=== PATIENT | female | born 1955 | race Caucasian/White ===

== ENCOUNTER 2018-01-13 06:36 | Inpatient (IN) | payer OTHER ==
[~2018-01-13] VITALS: Ht 157.5 cm; Wt 97.1 kg
[2018-01-13] MEDS ORDERED: ASPIRIN 81 MG TAB.CHEW ONE (06:46)
--- NOTE | 2018-01-13 06:56 | PHYS DOC ---
Adult General Chief Complaint Chief Complaint: CHEST PAIN HPI HPI 62-year-old female presents with sudden onset chest pain. The chest pain started about 30 minutes ago at home. The patient was baking breakfast when she had a central chest pain that she describes as sharp and intense. At its worst was 8 out of 10. It radiated straight through to the middle of her back. She has not had pain like this before, so she became concerned. On arrival to the ED , she states that her pain has decreased to a 3 out of 10. She denies nausea, vomiting, diaphoresis, shortness of breath. Patient did return from [facility] yesterday. Patient denies a significant history of GERD. She had a stress test about a year ago that was reported to be negative. She has not had a cardiac catheter. She's had no other cardiac interventions. She denies fever or chills. She was feeling fine prior to this episode. Review of Systems Review of Systems Constitutional: Denies fever or chills [] Eyes: Denies change in visual acuity, redness, or eye pain [] HENT: Denies nasal congestion or sore throat [] Respiratory: Denies cough or shortness of breath [] Cardiovascular: No additional information not addressed in HPI [] GI: Denies abdominal pain, nausea, vomiting, bloody stools or diarrhea [] : Denies dysuria or hematuria [] Musculoskeletal: Thoracic back pain. Denies joint pain [] Integument: Denies rash or skin lesions [] Neurologic: Denies headache, focal weakness or sensory changes [] Endocrine: Denies polyuria or polydipsia [] All other systems were reviewed and found to be within normal limits, except as documented in this note. Current Medications Current Medications Current Medications Medications (Trade) Dose Ordered Sig/[facility] Start Time Stop Time Status Last Admin Dose Admin Aspirin (Children'S Aspirin) 81 mg STK-MED ONCE 01/13/18 06:46 01/13/18 06:48 DC Sodium Chloride 1,000 ml @ 1,000 mls/hr 1X ONCE 01/13/18 07:00 01/13/18 07:59 01/13/18 06:49 1,000 MLS/HR Allergies Allergies Allergies Coded Allergies Type Severity Reaction Last Updated Verified No Known Drug Allergies 01/13/18 No Physical Exam Physical Exam Constitutional: Well developed, well nourished, no acute distress, non-toxic appearance. [] HENT: Normocephalic, atraumatic, bilateral external ears normal, oropharynx moist, no oral exudates, nose normal. [] Eyes: PERRLA, EOMI, conjunctiva normal, no discharge. [] Neck: Normal range of motion, no tenderness, supple, no stridor. [] Cardiovascular:Heart rate regular rhythm, no murmur [] Lungs & Thorax: Bilateral breath sounds clear to auscultation [] Abdomen: Bowel sounds normal, soft, no tenderness, no masses, no pulsatile masses. [] Skin: Warm, dry, no erythema, no rash. [] Back: No tenderness, no CVA tenderness. [] Extremities: No tenderness, no cyanosis, no clubbing, ROM intact. 2+ non- pitting edema bilateral lower legs [] Neurologic: Alert and oriented X 3, normal motor function, normal sensory function, no focal deficits noted. [] Psychologic: Affect normal, judgement normal, mood normal. [] EKG EKG Sinus rhythm, rate 63, normal axis, no ST elevations or depressions.[] Radiology/Procedures Radiology/Procedures [] Impressions: Preliminary interpretation: No pleural effusions, no pneumothorax, no focal consolidations. Course & Med Decision Making Course & Med Decision Making Pertinent Labs and Imaging studies reviewed. (See chart for details) Within the first 10 minutes of arrival, the patient had an EKG and labs started. She did not take aspirin home, so 324mg of chewable aspirin was given to the patient. Initial EKG did not show any ST elevation. Her chest x-ray is unremarkable. Her labs are unremarkable. Her troponin is negative. I discussed the case with the hospitalist, Dr. Townsend and he has agreed to admission for chest pain rule out. I discussed this with the patient and her and they are in agreement with the plan. [] Dragon Disclaimer Dragon Disclaimer This electronic medical record was generated, in whole or in part, using a voice recognition dictation system. GWEN KOEHLER DO Jan 13, 2018 06:56
[2018-01-13] MEDS ORDERED: ASPIRIN 81 MG TAB.CHEW PO ONE (07:00)
[2018-01-13] MEDS ORDERED: IV NORMAL SALINE 1,000ML 1,000 ML IV ONE (07:00)
[2018-01-13 07:01] LABS: BASO % 1 % (0-3); EOS # 0.2 x10^3/uL (0.0-0.7); EOS % 3 % (0-3); HEMATOCRIT 43.5 % (36.0-47.0); HEMOGLOBIN 14.6 g/dL (12.0-15.5); LYMPH # 1.8 x10^3/uL (1.0-4.8); LYMPH % 36 % (24-48); MEAN CORPUSCULAR HEMOGLOBIN 29 pg (25-35); MEAN CORPUSCULAR HGB CONC 34 g/dL (31-37); MEAN CORPUSCULAR VOLUME 86 fL (79-100); MONO # 0.6 x10^3/uL (0.0-1.1); MONO % 12 % (0-9); NEUT # 2.4 x10^3uL (1.8-7.7); NEUT % 48 % (31-73); PLATELET COUNT 236 x10^3/uL (140-400); RED BLOOD COUNT 5.07 x10^6/uL (3.50-5.40); RED CELL DISTRIBUTION WIDTH 13.8 % (11.5-14.5); WHITE BLOOD COUNT 4.9 x10^3/uL (4.0-11.0)
[2018-01-13 07:16] LABS: ALBUMIN 3.8 g/dL (3.4-5.0); ALBUMIN/GLOBULIN RATIO 1.1 (1.0-1.7); CALCIUM 9.1 mg/dL (8.5-10.1); CREATININE 0.8 mg/dL (0.6-1.0); GFR 73.2; POTASSIUM 3.7 mmol/L (3.5-5.1); TOTAL BILIRUBIN 0.6 mg/dL (0.2-1.0); TOTAL PROTEIN 7.2 g/dL (6.4-8.2)
[2018-01-13] MEDS ORDERED: NITROGLYCERIN SUBLINGUAL 0.4 MG BOTTLE OF 25. SL PRN (08:00)
[2018-01-13] MEDS ORDERED: ONDANSETRON PF 4 MG/2 ML VIAL. IV PRN (08:00)
[2018-01-13] MEDS ORDERED: MORPHINE SULFATE 2 MG/ML DISP.SYRIN. IV PRN (08:00)
--- NOTE | 2018-01-13 08:03 | RAD ---
EXAM: CHEST 1 VIEW History: Chest pain COMPARISON: 06/10/2005 TECHNIQUE: Single portable radiograph of the chest FINDINGS: The cardiac silhouette is unremarkable. The lungs are clear bilaterally. The costophrenic sulci are clear and well demarcated. IMPRESSION: No radiographic evidence of an acute cardiopulmonary process. Electronically signed by: Adebayo Barnes MD (01/13/2018 7:59 AM) [facility]
[2018-01-13 09:39] VITALS: BP 172/89
[2018-01-13] MEDS ORDERED: LIPITOR (10:22)
[2018-01-13] MEDS ORDERED: LEVOTHYROXINE (10:22)
[2018-01-13 11:03] VITALS: BP 133/83
[2018-01-13] MEDS ORDERED: IOHEXOL 300 MG/ML 75 ML VIAL. IV ONE (13:00)
--- NOTE | 2018-01-13 13:21 | EKG ---
[address] [address] Test Date: 2018-01-13 Test Time: 06:41:27 Pat Name: MEENAKSHI JEFFERSON Department: Room: 117 A Gender: F Guest Service Aide: : 1955 Requested By: GWEN KOEHLER Order Number: [id number] Reading MD: Vince Álvarez MD Measurements Intervals [place] Rate: 63 P: 63 MN: 126 QRS: 26 QRSD: 78 T: 14 QT: 412 QTc: 425 Interpretive Statements SINUS RHYTHM Electronically Signed On 01-15-2018 13:49:57 CDT by Vince Álvarez MD
--- NOTE | 2018-01-13 14:30 | HP ---
ADMIT DATE: 01/13/2018 HISTORY OF PRESENT ILLNESS: The patient is a 62-year-old female patient, who came to the Emergency Room complaining of sudden onset chest pain started about 30 minutes prior to arrival to the Emergency Room. While picking breakfast, she developed sudden severe central chest pain that she describes as sharp, intense. It was 8/10 in severity, radiating through and through to the back. She has not had pain like this before. She denied any nausea or vomiting. Denied any diaphoresis or shortness of breath. By the time she arrived to the Emergency Room, it was only 3/10. She was given 4 tablets of baby aspirin tablets and the patient did just return from [place]. Their flight loses about 10-1/2 hours, landing in [facility] and from there to [place]. She had had a stress test done about a year ago that was reportedly negative. She has not had any cardiac catheterization and no other cardiac intervention. PAST MEDICAL HISTORY: Significant for hypothyroidism, hyperlipidemia, borderline type 2 diabetes, generalized osteoarthritis. She has bilateral cataract, does not require surgical intervention yet. PAST SURGICAL HISTORY: Significant for left breast biopsy and ovarian tumor treatment with embolization. She has also had a colonoscopy. ALLERGIES: She has no known drug allergies. MEDICATIONS: She is apparently on Synthroid, Lipitor, multivitamin, calcium with vitamin D and fish oil. FAMILY HISTORY: She has 2 brothers and 1 sister. Her older brother in a motor vehicle accident. Her younger brother and sister are healthy. Her sister is the survival of a cervical cancer. Her father is still alive and has prostate cancer. Mother is alive at age of 82 and she is apparently bedridden. She has multiple CVAs and diabetes. SOCIAL HISTORY: She is , has 2 daughters. She does not smoke or drink alcohol. She is taking care of her mother. REVIEW OF SYSTEMS: The patient denied any blurring of vision. She has bilateral cataract, does not require any surgical intervention, but denied any glaucoma or macular degeneration. Denied any earache, tinnitus or sensorineural deafness. Denied any nosebleeds, stuffy nose, or postnasal drip. Denied any sore throat, sore tongue, toothache, hoarseness of voice or difficulty swallowing. Denied any nausea, vomiting, diarrhea, or constipation. Denied any hematemesis, melena or hematochezia. Denied any dysuria, frequency or hematuria. Did complain of chest pain, but denied any shortness of breath, orthopnea, paroxysmal nocturnal dyspnea. Denied any cough, phlegm or hemoptysis. Denied any chills, rigors, or fever. Denied any dizziness, lightheadedness, or vertigo. PHYSICAL EXAMINATION: GENERAL: On arrival to the Emergency Room, she looked well and was clearly in no apparent respiratory distress. No pallor, jaundice, cyanosis, or thyromegaly. No jugular venous distension. No limb edema. VITAL SIGNS: Her heart rate was 57, blood pressure was 172/89, temperature was 98, respiratory rate was 18 and oxygen saturation was 98%. HEAD, EYES, EARS, NOSE AND THROAT: Showed normocephalic, atraumatic. NECK: Supple. HEART: Showed normal first and second sounds. No gallop, rub or murmur. CHEST: Clear to auscultation. No crepitation or rhonchi. ABDOMEN: Distended, soft, nontender. NEUROLOGIC: She is awake, alert, responding appropriately. All cranial nerves intact. EXTREMITIES: She moves extremities without difficulty. She ambulates without assistance or assistive devices. LABORATORY DATA: On arrival to the Emergency Room showed a serum sodium 140, potassium 3.7, chloride 104, bicarbonate 29, anion gap of 7, BUN 18, creatinine 0.8, estimated GFR was 73 mL per minute. Her glucose was 95, calcium was 9.1. Total bilirubin, AST, ALT, alkaline phosphatase were normal. Total protein was 7.2, albumin was 3.9. Her first set of cardiac enzymes showed troponin to be less than 0.017. Her white cell count was 4900, hemoglobin 15, hematocrit 44, MCV 86 and platelet count of 236,000. Her chest x-ray showed the cardiac silhouette is unremarkable. The lungs are clear bilaterally. The costophrenic sulci are clear and well demarcated. Her EKG showed that she was in sinus rhythm with a heart rate of 63 beats per minute with no ST segment elevation or depression. ASSESSMENT AND PLAN: The patient was admitted to rule out myocardial infarction. We will do 2 more sets of cardiac enzyme. Consult the bitumen plant operator, given the intensity of pain and thus radiating through to the back, I met with concerned that about aortic dissection and therefore, I will do CT scan with CT angio of the chest that should rule out aortic dissection and pulmonary embolism. She also has had a long flight from [place] through [facility] the last about 10-1/2 hours. SHELLI GUZMAN MD DR: FABIOLA/cyndy JOB#: [id number] / [id number]
[2018-01-13 14:38] VITALS: BP 167/88
[2018-01-13] MEDS ORDERED: LEVO150T PO (14:46)
[2018-01-13] MEDS ORDERED: ATOR20TA PO (14:46)
--- NOTE | 2018-01-13 14:54 | RAD ---
Examination: CT angiography chest HISTORY: History of chest pain, shortness of breath COMPARISON: None available technique: Axial CT angiographic images of chest were performed with IV contrast. Coronal and sagittal 3-D MIP reformats are performed Exposure: One or more of the following individualized dose reduction techniques were utilized for this examination: 1. Automated exposure control 2. Adjustment of the mA and/or kV according to patient size 3. Use of iterative reconstruction technique. Findings: The central airways are patent. Mild cardiomegaly. Coronary artery calcifications identified. There is no evidence of filling defect identified in the main pulmonary artery trunk and right and left main pulmonary arteries and the visualized lobar, segmental branches of the pulmonary arteries. The lungs are clear. Moderate size hiatal hernia is identified. The visualized liver, spleen, adrenals grossly appears unremarkable. Moderate degenerative changes thoracic spine. IMPRESSION: 1. No evidence of pulmonary embolism. 2. The lungs are clear. 3. Moderate hiatal hernia. 4. Coronary artery calcifications Electronically signed by: Adebayo Barnes MD (01/13/2018 2:50 PM) [facility]
--- NOTE | 2018-01-13 16:08 | CONS ---
DATE OF CONSULTATION: 01/13/2018 REASON FOR CONSULTATION: Chest pain. HISTORY OF PRESENT ILLNESS: A 62-year-old female presented to the ER with a sharp stabbing pain lasting for about 45 minutes prior to arrival to the ER. She had evaluation in the ER including a CT of the chest, which did not reveal any significant pathology. Due to her risk factors for recent travel and cardiac comorbidities, she was asked to be evaluated by Cardiology. In speaking with the patient, she is at baseline fairly active, but does not perform structured exercise. She recently returned from a trip from [place] where she was able to ambulate most of the trip without any problems. At home, she takes care of her bedridden mother and although she gets dyspneic with significant prolonged activities at baseline, with usual activity she does not have any symptoms such as chest pain, orthopnea, PND or lower extremity edema. PAST MEDICAL HISTORY: Notable for as follows: 1. Hypothyroidism. 2. Dyslipidemia. 3. Borderline diabetes. 4. Generalized osteoarthritis. 5. Bilateral cataract surgery. ALLERGIES: No known drug allergies. CURRENT CARDIOVASCULAR MEDICATIONS: Lipitor. FAMILY HISTORY: She has no significant cardiac family history, but does have family members with multiple CVAs and diabetes. SOCIAL HISTORY: The patient denies any alcohol, tobacco or illicit drug use. She is and has two daughters. REVIEW OF SYSTEMS: Negative for 10 out of 14 systems reviewed, unless otherwise mentioned above in HPI. PHYSICAL EXAMINATION: VITAL SIGNS: Afebrile, 59, 18, 167/88, 97% on room air. GENERAL: She is alert and oriented, no acute distress. HEAD AND NECK: Unremarkable. HEART: Regular rate and rhythm without murmurs, rubs or gallops. LUNGS: Clear to auscultation bilaterally. ABDOMEN: Soft, nontender, nondistended. EXTREMITIES: Without any clubbing, cyanosis or edema. NEUROLOGIC: No focal deficits. MUSCULOSKELETAL: No trauma. DIAGNOSTIC STUDIES: Cardiac enzymes negative x 3. EKG is unremarkable. Hemoglobin, platelets are within normal limits. CT of the chest is unremarkable. IMPRESSION: Atypical chest pain. Differential diagnosis is broad, but no obvious cardiac pathology is noted. Suspect to be in the pleuritic nature versus hypertensive urgency, although no clear delineation to be made at this time. RECOMMENDATIONS: Given her low risk presentation of negative cardiac enzymes, normal EKG and atypical chest pain, she would be fairly reasonable to be discharged home. Of note, she had a stress test about 1 year ago, which is normal according to her through Dr. Laws at [facility]. The patient was advised to follow up with her shake splitter, Dr. Laws for any recurrent chest pain for consideration of coronary angiography given her coronary calcifications noted on CT of the aorta here in the hospital. Thank you for this consultation. Otherwise, continue risk factor modification. CHRIS GABRIEL MD DR: HEMA/cyndy JOB#: [id number] / [id number]
--- NOTE | 2018-01-13 20:34 | DS ---
DATE OF DISCHARGE: 01/13/2018 HISTORY OF PRESENT ILLNESS: The patient is a 62-year-old female patient, who was admitted with sudden severe stabbing chest pain that is retrosternal, radiating through and through to the back associated with a mild diaphoresis, but no nausea, no vomiting, no shortness of breath lasted about 20 minutes, rated about 8/10 in severity and subsided spontaneously. The patient has 3 sets of cardiac enzymes, all of them showed troponin to be less than 0.017. She traveled from [place] to back home here in [place] and the flight was lasted about 3-1/2 hours and as this is a risk for DVT, I did actually a CT angio of the chest, which basically showed the patient has mild cardiomegaly and coronary artery calcification, but the central airways are patent. There is no evidence of filling defects identified in the main pulmonary artery trunk and the right and left main pulmonary arteries and visualized lobar-segmental branches of pulmonary arteries. Her lungs are clear. Since her moderate sized hiatal hernia is identified, the visualized liver, spleen, and adrenals are grossly appears unremarkable. She has moderate degenerative change of the thoracic spine. She was seen in consultation by the rubber roller grinder operator and as she has a stress test done recently, the rubber roller grinder operator set that the patient can safely be discharged to follow up with her primary care physician. PHYSICAL EXAMINATION: GENERAL: When I saw her this afternoon, she looked well and was clearly in no apparent respiratory distress. No pallor, jaundice, cyanosis, or thyromegaly. No jugular venous distension. No limb edema. VITAL SIGNS: Her heart rate was 59, blood pressure was 167/88, temperature was 98, respiratory rate was 18 and oxygen saturation was 97%. HEAD, EYES, EARS, NOSE AND THROAT: Normocephalic and atraumatic. NECK: Supple. HEART: Showed normal first and second heart sounds with no gallop, rub or murmur. CHEST: Clear to auscultation. No crepitation or rhonchi. ABDOMEN: Distended, soft, nontender. NEUROLOGICAL: She is awake, alert, responding appropriately. Cranial nerves intact. She moves extremities without difficulty. She ambulates without assistance or assistive devices. She has 3 sets of cardiac enzymes, all of them showed troponin to be less than 0.017. Her CT angio of the chest showed no evidence of negative for pulmonary emboli. The lungs are clear with no evidence of pneumothorax, pneumonia or pleural effusion, moderate size hiatal hernia. The patient will be discharged home to continue on her current medications that include atorvastatin calcium 20 mg at bedtime, levothyroxine sodium 150 mcg once a day. FINAL DISCHARGE DIAGNOSES: Chest pain, myocardial infarction ruled out, hyperlipidemia, hypothyroidism, generalized osteoarthritis, and hiatal hernia. SHELLI GUZMAN MD DR: FABIOLA/cyndy JOB#: [id number] / [id number]
[2018-01-14] MEDS ORDERED: LEVOTHYROXINE 150 MCG TABLET PO SCH (06:00)
[2018-01-14] MEDS ORDERED: ATORVASTATIN CALCIUM 20 MG TABLET PO SCH (09:00)
== END 2018-01-13 16:55 | disposition home or self-care (01) | DRG 313 ==
LOC: ER 06:36 → 1 SOUTH 08:33
PROVIDERS: ADMIT Internal Medicine; ATTEND Internal Medicine
DX: R07.89 Other chest pain (principal); E03.9 Hypothyroidism, unspecified; I51.7 Cardiomegaly; E78.5 Hyperlipidemia, unspecified; K44.9 Diaphragmatic hernia without obstruction or gangrene; I25.10 Atherosclerotic heart disease of native coronary artery without angina pectoris; M15.9 Polyosteoarthritis, unspecified; Z74.01 Bed confinement status; Z80.49 Family history of malignant neoplasm of other genital organs; Z83.3 Family history of diabetes mellitus; Z79.899 Other long term (current) drug therapy
CPT/HCPCS: 36415; 71045; 71275; 80053; 83690; 83880; 84484; 85025; 93005; 96360; Q9967; 99285-25; J7030

== ENCOUNTER → 2020-12-07 | Outpatient (CLI) | payer OTHER ==
[~2020-12-07] MED LIST: ATOR20TA PO; LEVO150T PO; LEVOTHYROXINE; LIPITOR
--- NOTE | 2020-12-07 11:47 | RAD ---
EXAM: DUAL ENERGY X-RAY ABSORPTIOMETRY (DEXA). HISTORY: Postmenopausal screening. FINDINGS: The lowest measured T-score is -1.1 in the right femoral neck, based on a bone mineral dens ity of 0.813 g/cm^2. Refer to the worksheets for full detail. There has been a 10.5 percent decrease in density of the right hip and 10.4 percent decrease in densi ty of the lumbar spine compared to a baseline exam dated 06/05/2009. IMPRESSION: 1. Low bone mass. Bone mineral density yields a T-score between -1.0 and -2.5. Fracture risk is incre ased. 2. FRAX report: Not calculated. METHODOLOGY: Dual energy x-ray absorptiometry was performed to measure bone mineral density. The foll owing analysis is based on the 2019 Official Positions of the International Society for Clinical Dens itometry: Measurements of the hips and the average of L1-L4 are preferred. When the spine and/or hip cannot be feasibly measured or interpreted, or in the setting of hyperparathyroidism, distal radial bone minera l density may be measured. The lumbar spine T-score is based on the average bone mineral density of L1-L4. In the setting of art ifact or anatomic abnormality, some lumbar levels may be excluded, and the remaining levels used for calculation. A single lumbar level is not used for diagnosis, and if only a single level is available for assessment, another anatomic site will be used to assign a diagnosis. The hip T-score is based on the bone mineral density measurement of the femoral neck or total proxima l femur of either side, whichever is lowest. Bilateral mean values are not used for diagnosis. The forearm T-score is derived from 33% of the distal radius of the nondominant forearm. Electronically signed by: Ary Estevez MD (12/07/2020 11:45 AM) [id number]
== END ==
LOC: DXRAD 09:28
PROVIDERS: ATTEND Family Medicine
DX: M85.80 Other specified disorders of bone density and structure, unspecified site (principal)
CPT/HCPCS: 77080

== ENCOUNTER 2021-06-26 03:18 | Emergency (ER) | payer OTHER ==
[~2021-06-26] VITALS: Ht 157.5 cm; Wt 80.0 kg
--- NOTE | 2021-06-26 03:31 | PHYS DOC ---
Past History Past Medical History: High Cholesterol, Hypothyroid, UTI Past Surgical History: Other Alcohol Use: None Drug Use: None General Adult HPI: HPI: ".. I have not had UTI for maybe 15 yrs.. and all sudden.. I ve had three episodes recently of UTI... I went to see a urologist.. but he did not have a reason for it..." Patient is a 65 year old FEMALE who presents with dysuria. Pt. hx prior UTI's with similar presentation. Patient denies any changes in meds. Patient denies any recent travel or specific ill contacts. Patient denies any trauma. Patient has past medical history of hypothyroidism, hyperlipidemia, diabetes, osteoarthritis,. Ovarian tumor treated with embolization,. The pt. follows at [place]. Patient does not smoke or drink. No history immunosuppression. No history of vaginal discharge. Review of Systems: Review of Systems: Constitutional: Denies fever or chills Eyes: Denies change in visual acuity HENT: Denies nasal congestion or sore throat Respiratory: Denies cough or shortness of breath Cardiovascular: Denies chest pain or edema GI: Denies abdominal pain, nausea, vomiting, bloody stools or diarrhea : Complains of dysuria Musculoskeletal: Denies back pain or joint pain Integument: Denies rash Neurologic: Denies headache, focal weakness or sensory changes Endocrine: Denies polyuria or polydipsia Lymphatic: Denies swollen glands Psychiatric: Denies depression or anxiety Family History: Family History: 2 brothers 1 sister. Older brother of a motor vehicle accident. Younger brother and sister are healthy. Sister has history of cervical cancer. Father had prostate cancer. Mother had history of multiple CVAs and diabetes. Current Medications: Current Meds: See nursing for home meds Allergies: Allergies: Allergies Coded Allergies Type Severity Reaction Last Updated Verified No Known Drug Allergies 01/13/18 No Physical Exam: PE: Constitutional: Moderate acute distress, non-toxic appearance. [] HENT: Normocephalic, atraumatic, bilateral external ears normal, oropharynx moist, no oral exudates, nose normal. [] Eyes: PERRLA, EOMI, conjunctiva normal, no discharge. Masses Neck: Normal range of motion, no tenderness, supple, no stridor. [] Cardiovascular:Heart rate regular rhythm, no murmur [] Lungs & Thorax: Bilateral breath sounds equal at apex auscultation [] Abdomen: Bowel sounds normal, soft, , no masses, no pulsatile masses. Mild suprapubic tenderness. Old scar Skin: Warm, dry, no erythema, no rash. [] Back: No tenderness, no CVA tenderness. [] Extremities: No tenderness, no cyanosis, no clubbing, ROM intact, no edema. [] Neurologic: Alert and oriented X 3, normal motor function, normal sensory function, no focal deficits noted. [] Psychologic: Affect anxious, judgement normal, mood normal. [] EKG: EKG: [] Radiology/Procedures: Radiology/Procedures: [] Heart Score: C/O Chest Pain: N/A Risk Factors: Risk Factors: DM, Current or recent (<one month) smoker, HTN, HLP, family history of CAD, obesity. Risk Scores: Score 0 - 3: 2.5% MACE over next 6 weeks - Discharge Home Score 4 - 6: 20.3% MACE over next 6 weeks - Admit for Clinical Observation Score 7 - 10: 72.7% MACE over next 6 weeks - Early Invasive Strategies Course & Med Decision Making: Course & Med Decision Making Pertinent Labs and Imaging studies reviewed. (See chart for details)P\\ Push Vitamin C drinks. Take Bactrim DS twice a day x 10 days. After complete the Bactrim take Diflucan 100 x 3 days. Impression: 1. Dysuria 2. UTI [] Dragon Disclaimer: Dragon Disclaimer: This electronic medical record was generated, in whole or in part, using a voice recognition dictation system. Departure Departure: Referrals: DENISE COLLADO (PCP) Scripts Fluconazole (DIFLUCAN) 100 Mg Tablet 100 MG PO DAILY for after complete antibiotics for 3 Days, #3 TAB Prov: GERMAN TSAI MD 06/26/21 Sulfamethoxazole/Trimethoprim (BACTRIM DS TABLET) 1 Each Tablet 1 TAB PO BID for UTI for 10 Days, #20 TAB 0 Refills Prov: GERMAN TSAI MD 06/26/21 Dragon Disclaimer This chart was dictated in whole or in part using Voice Recognition software in a busy, high-work load, and often noisy Emergency Department environment. It may contain unintended and wholly unrecognized errors or omissions. GERMAN TSAI MD Jun 26, 2021 03:31
[2021-06-26 04:33] VITALS: BP 139/82
[2021-06-26 04:54] LABS: BACTERIA,URINE MANY /HPF (0-FEW); CLARITY,URINE CLOUDY; COLOR,URINE YELLOW; GLUCOSE,URINE NEG (NEG); NITRITE,URINE NEG (NEG); SQUAMOUS EPITHELIAL CELL,UR MOD /LPF; UROBILINOGEN,URINE 0.2 mg/dL (0.2 mg/dL); WBC,URINE TNTC /HPF (0-4)
[2021-06-26] MEDS ORDERED: SULF1TAB24 PO (05:14)
[2021-06-26] MEDS ORDERED: FLUC100T7 PO (05:14)
[2021-06-26] MEDS ORDERED: SMZ/TMP 800/160MG TABLET. PO ONE (05:30)
== END 2021-06-26 05:26 | disposition home or self-care (01) ==
LOC: ER 03:18
DX: N39.0 Urinary tract infection, site not specified (principal); Z87.440 Personal history of urinary (tract) infections; E78.00 Pure hypercholesterolemia, unspecified; E03.9 Hypothyroidism, unspecified
CPT/HCPCS: 81001; 87086; 99283